=== PATIENT | male | born 1940 | race Caucasian/White ===

== ENCOUNTER 2016-07-18 05:27 | Emergency (ER) | payer MEDICARE, BC ==
[2016-07-18 06:31] VITALS: BP 178/98
--- NOTE | 2016-07-18 06:48 | EDM.PDOC ---
ED HPI Skin/Rash - General Chief Complaint: Skin Complaint Stated Complaint: SWOLLEN CHEEKS Time Seen by Provider: 07/18/16 05:56 Source: Reports: Patient History Limitations: Reports: No limitations - History of Present Illness INITIAL COMMENTS - FREE TEXT/NARRATIVE: History of present illness: [Patient presents with a generalized hive like rash prior to this he developed a rash on his penis. He's recently been treated with 2 courses of antibiotics and steroids for bronchial infection.] Review of systems: As per history of present illness and below otherwise all systems reviewed and negative. Past medical history: As per history of present illness and as reviewed below otherwise noncontributory. Surgical history: As per history of present illness and as reviewed below otherwise noncontributory. Social history: No reported history of drug or alcohol abuse. Family history: As per history of present illness and as reviewed below otherwise noncontributory. Physical exam: HEENT: Atraumatic, normocephalic Lungs: Clear to auscultation Heart: S1S2, regular Abdomen: Soft, nondistended, nontender Pelvis: Stable nontender. Genitourinary: He is a dense erythematous rash on his penis with some skin scaling and peeling he is noncircumcised Neuro: Awake, alert, oriented. Exam nonfocal. Skin: He has a blanching hive-like rash on his trunk extremities and face which I believe is secondary to the rash on his penis Diagnostics: [LH prep revealed yeast on his penis] Therapeutics: [] Impression: [Candidiasis the penis] Plan: [Diflucan 200 mg subcutaneous daily for 10 days. He can use Benadryl for the rash and I think that the treatment of his candidiasis the other rash will clear up. ] Definitive disposition and diagnosis as appropriate pending reevaluation and review of above. - Related Data Allergies Allergy/AdvReac Type Severity Reaction Status Date / Time No Known Allergies Allergy Verified 09/15/14 07:03 Home Meds: Ambulatory Orders Medication Instructions Recorded Confirmed Timolol [Betimol] 1 drop EYEBOTH DAILY 09/13/14 07/18/16 metFORMIN [Glucophage] 500 mg PO BIDMEALS 09/13/14 07/18/16 Aspirin [Adult Low Dose Aspirin EC] 81 mg PO DAILY 09/15/14 07/18/16 Albuterol [Ventolin HFA] 2 inh INH ASDIRECTED PRN 07/18/16 07/18/16 Ascorbic Acid [Vitamin C] 1 tab PO DAILY 07/18/16 07/18/16 Calc/D3/Mag/Zn/Equipment Monitor Phototypesetting/Amos/Martelle 1 tab PO BEDTIME 07/18/16 07/18/16 [Calcium 600 MG Plus Vit D] Lisinopril [Lisinopril] 10 mg PO DAILY 07/18/16 07/18/16 Multivitamin [Multi-Vitamin Daily] 1 tab PO DAILY 07/18/16 07/18/16 Pravastatin [Pravachol] 20 mg PO BEDTIME 07/18/16 07/18/16 Vitamin E 1 cap PO DAILY 07/18/16 07/18/16 amLODIPine [Norvasc] 5 mg PO DAILY 07/18/16 07/18/16 Past Medical History Cardiovascular History: Reports: High cholesterol, Hypertension Respiratory History: Reports: Bronchitis, recurrent Other Respiratory History: RECENT URI ON ANTIBIOTICS 15 DAYS Endocrine/Metabolic History: Reports: Diabetes, type II - Past Surgical History Other HEENT Surgeries/Procedures: laser eye procedure for glaucoma GI Surgical History: Reports: Cholecystectomy Other Neurological Surgeries/Procedures: back surgery to remove spurs Other Musculoskeletal Surgeries/Procedures:: back surgery to remove spurs Social & Family History - Tobacco Use Smoking Status *Q: Never Smoker Years of Tobacco use: 20 Used Tobacco, but Quit: Yes Month Tobacco Last Used: 0 Second Hand Smoke Exposure: No - Alcohol Use Days Per Week of Alcohol Use: 0 - Recreational Drug Use Recreational Drug Use: No ED ROS GENERAL - Review of Systems Review Of Systems: ROS reveals no pertinent complaints other than HPI. ED EXAM, SKIN/RASH Exam: See Below Course - Vital Signs Last Recorded V/S: Last Vital Signs Temp 36.9 C 07/18/16 05:39 Pulse 78 07/18/16 05:39 Resp 16 07/18/16 05:39 BP 178/98 H 07/18/16 06:31 Pulse Ox 94 L 07/18/16 05:39 - Orders/Labs/Meds Orders: Active Orders 24 hr Category Date Time Status CULTURE WOUND + SMEAR [RM] Stat Lab 07/18/16 06:07 Uncollected Departure - Departure Time of Disposition: 06:48 Disposition: Home, Self-Care 01 Condition: good Clinical Impression: Candidiasis of penis Forms: ED Department Discharge Additional Instructions: The rash is not clearing up over the next week please follow up with her primary care doctor - My Orders Last 24 Hours: My Active Orders 07/18/16 06:07 CULTURE WOUND + SMEAR [RM] Stat - Assessment/Plan Last 24 Hours: My Active Orders 07/18/16 06:07 CULTURE WOUND + SMEAR [RM] Stat
== END 2016-07-18 07:00 | disposition home or self-care (01) ==
LOC: JP.ED 05:27
DX: B37.49 Other urogenital candidiasis (principal); E78.00 Pure hypercholesterolemia, unspecified; I10 Essential (primary) hypertension; E11.9 Type 2 diabetes mellitus without complications; Z90.49 Acquired absence of other specified parts of digestive tract
CPT/HCPCS: 87070; 87077; 87205; 87210; 87220; 99283

== ENCOUNTER 2022-07-30 14:00 | Emergency (ER) | payer MEDICARE, BC ==
[2022-07-30 15:43] VITALS: BP 191/88; PULSE 75
== END 2022-07-30 16:10 | disposition home or self-care (01) ==
LOC: JP.ED 14:00
DX: S06.0X0A Concussion without loss of consciousness, initial encounter (principal); S00.03XA Contusion of scalp, initial encounter; E78.00 Pure hypercholesterolemia, unspecified; I10 Essential (primary) hypertension; E11.9 Type 2 diabetes mellitus without complications; Z79.84 Long term (current) use of oral hypoglycemic drugs; Z79.82 Long term (current) use of aspirin; Z87.891 Personal history of nicotine dependence; W00.0XXA Fall on same level due to ice and snow, initial encounter
CPT/HCPCS: 70450; 70450-26; 99284

== ENCOUNTER 2022-09-02 07:29 | Emergency (ER) | payer MEDICARE, BC ==
[2022-09-02] MEDS ORDERED: Sodium Chloride 0.9% 10 ML Syringe FLUSH PRN ×2 (08:54→09:13)
[2022-09-02] MEDS ORDERED: Iopamidol 755 Mg/ML 100 ML Bottle IV SCH (09:15)
[2022-09-02] MEDS ORDERED: Sodium Chloride 0.9% 100 ML IV SCH (09:15)
[2022-09-02 09:32] LABS: ESTIMATED GFR 76 mL/min (>60)
[2022-09-02 12:09] VITALS: BP 214/96; PULSE 76
== END 2022-09-02 12:09 ==
LOC: JP.ED 07:29
DX: S06.5XAA Traumatic subdural hemorrhage with loss of consciousness status unknown, initial encounter (principal); E78.00 Pure hypercholesterolemia, unspecified; I10 Essential (primary) hypertension; E11.9 Type 2 diabetes mellitus without complications; Z79.82 Long term (current) use of aspirin; Z87.891 Personal history of nicotine dependence; Z79.899 Other long term (current) drug therapy; W18.09XA Striking against other object with subsequent fall, initial encounter
CPT/HCPCS: 36415; 70450; 70450-26; 80053; 82947; 84484; 85025; 85651; 86140; 99284; 99285; J3490

== ENCOUNTER 2022-09-04 21:47 | Emergency (ER) | payer MEDICARE, BC ==
[2022-09-04 22:17] VITALS: BP 163/63; PULSE 80
[2022-09-04 22:55] LABS: BASOPHILS ABSOLUTE AUTO 0.05 K/uL (0.00-0.10); BASOPHILS PERCENT AUTO 0.6 % (0.1-1.3); EOSINOPHILS ABSOLUTE AUTO 0.39 K/uL (0.00-0.40); EOSINOPHILS PERCENT AUTO 4.9 % (0.0-5.4); HEMATOCRIT 41.3 % (38.4-49.7); HEMOGLOBIN 13.5 g/dL (12.9-16.9); IMMATURE GRAN ABSOLUTE AUTO 0.03 K/uL (0.00-0.23); IMMATURE GRAN PERCENT AUTO 0.4 % (0.0-0.7); LYMPHOCYTES PERCENT AUTO 13.7 % (11.4-47.7); MEAN CORPUSCULAR HEMOGLOBIN 29.9 pg (31.6-35.5); MEAN CORPUSCULAR HGB CONC 32.7 g/dL (31.6-35.5); MEAN CORPUSCULAR VOLUME 91.6 fL (81.4-99.0); MONOCYTES PERCENT AUTO 11.2 % (3.3-12.6); NEUTROPHILS ABSOLUTE AUTO 5.54 K/uL (1.0-7.6); NEUTROPHILS PERCENT AUTO 69.2 % (40.0-78.1); PLATELET COUNT,PLT 213 K/uL (130-375); RED BLOOD CELL COUNT 4.51 M/uL (4.14-5.76)
[2022-09-04 23:12] LABS: APPEARANCE,URINE CLOUDY (CLEAR); BILIRUBIN,URINE LARGE (NEGATIVE); COLOR,URINE RED (YELLOW); GLUCOSE,URINE 100 mg/dL (NEGATIVE); KETONES,URINE 40 mg/dL (NEGATIVE); LEUKOCYTE ESTERASE,URINE LARGE (NEGATIVE); NITRITE,URINE POSITIVE (NEGATIVE); OCCULT BLOOD,URINE LARGE (NEGATIVE); PH,URINE 8.5 (5.0-8.0); PROTEIN,URINE >=300 mg/dL (NEGATIVE)
[2022-09-04 23:13] LABS: RBC,URINE PACKED (0-5)
[2022-09-04 23:15] LABS: PROTHROMBIN TIME 10.3 sec (9.2-10.6); PTT,PARTIAL THROMBOPLSTIN TIME 28.3 sec (21.8-27.3)
[2022-09-04] MEDS ORDERED: Nitrofurantoin Monohydrate/Macrocrystalline 100 MG Cap PO ONE (23:42)
== END 2022-09-05 00:05 | disposition home or self-care (01) ==
LOC: JP.ED 21:47
DX: N39.0 Urinary tract infection, site not specified (principal); R31.0 Gross hematuria; E78.00 Pure hypercholesterolemia, unspecified; I10 Essential (primary) hypertension; E11.9 Type 2 diabetes mellitus without complications; Z79.84 Long term (current) use of oral hypoglycemic drugs; Z96.0 Presence of urogenital implants; Z79.82 Long term (current) use of aspirin; Z79.899 Other long term (current) drug therapy
CPT/HCPCS: 36415; 81001; 85025; 85610; 85730; 87086; 99283; A9270

== ENCOUNTER 2023-04-26 17:31 | Emergency (ER) | payer MEDICARE, BC ==
[2023-04-26 18:18] VITALS: BP 179/88; PULSE 104
[2023-04-26 18:41] LABS: BASOPHILS ABSOLUTE AUTO 0.04 K/uL (0.00-0.10); BASOPHILS PERCENT AUTO 0.5 % (0.1-1.3); EOSINOPHILS ABSOLUTE AUTO 0.24 K/uL (0.00-0.40); EOSINOPHILS PERCENT AUTO 2.8 % (0.0-5.4); HEMATOCRIT 49.5 % (38.4-49.7); HEMOGLOBIN 16.8 g/dL (12.9-16.9); IMMATURE GRAN ABSOLUTE AUTO 0.04 K/uL (0.00-0.23); IMMATURE GRAN PERCENT AUTO 0.5 % (0.0-0.7); LYMPHOCYTES ABSOLUTE AUTO 0.53 K/uL (0.8-3.3); LYMPHOCYTES PERCENT AUTO 6.2 % (11.4-47.7); MEAN CORPUSCULAR HEMOGLOBIN 29.6 pg (31.6-35.5); MEAN CORPUSCULAR HGB CONC 33.9 g/dL (31.6-35.5); MEAN CORPUSCULAR VOLUME 87.3 fL (81.4-99.0); MONOCYTES ABSOLUTE AUTO 0.65 K/uL (0.20-0.90); MONOCYTES PERCENT AUTO 7.6 % (3.3-12.6); NEUTROPHILS ABSOLUTE AUTO 7.09 K/uL (1.0-7.6); NEUTROPHILS PERCENT AUTO 82.4 % (40.0-78.1); PLATELET COUNT,PLT 168 K/uL (130-375); RED BLOOD CELL COUNT 5.67 M/uL (4.14-5.76); WHITE BLOOD CELL COUNT,WBC 8.6 K/uL (3.2-11.0)
[2023-04-26 19:01] LABS: A/G RATIO 1.1 (1.2-2.2); ALANINE AMINOTRANSFERASE,ALT 25 U/L (12-78); ALBUMIN 3.9 g/dL (3.4-5.0); ALKALINE PHOSPHATASE 89 U/L (46-116); ASPARTATE AMNIOTRANSFERASE,AST 19 U/L (15-37); BILIRUBIN TOTAL 0.5 mg/dL (0.2-1.0); BLOOD UREA NITROGEN,BUN 18 mg/dL (7-18); C-REACTIVE PROTEIN 1.51 mg/dL (<0.50); CALCIUM 8.4 mg/dL (8.5-10.1); CARBON DIOXIDE,CO2 28 mmol/L (21-32); CHLORIDE,CL 101 mmol/L (100-108); CREATININE 1.2 mg/dL (0.8-1.3); EST CRCL DRUG DOSING (CG) 45.92 mL/min; ESTIMATED GFR 60 mL/min (>60); GLUCOSE RANDOM 161 mg/dL (74-106); POTASSIUM,K 3.7 mmol/L (3.6-5.2); PROTEIN TOTAL,TP 7.3 g/dL (6.4-8.2); SODIUM,NA 139 mmol/L (140-148)
[2023-04-26 19:02] LABS: ANION GAP 13.7 mmol/L (5.0-14.0)
[2023-04-26 19:04] LABS: INFLUENZA A NAA NEGATIVE (NEGATIVE); INFLUENZA B NAA NEGATIVE (NEGATIVE); RESPIRATORY SYNCYTIAL VIR NAA NEGATIVE (NEGATIVE)
[2023-04-26 19:05] LABS: CORONAVIRUS COVID-19 NAA POSITIVE (NEGATIVE)
== END 2023-04-26 19:27 | disposition home or self-care (01) ==
LOC: JP.ED 17:31
DX: U07.1 COVID-19 (principal); I10 Essential (primary) hypertension; E78.00 Pure hypercholesterolemia, unspecified; E11.9 Type 2 diabetes mellitus without complications; Z79.84 Long term (current) use of oral hypoglycemic drugs; Z79.899 Other long term (current) drug therapy; Z79.82 Long term (current) use of aspirin
CPT/HCPCS: 0241U; 36415; 80053; 85025; 86140; 99284